=== PATIENT | female | born 1945 | race Caucasian/White ===

== ENCOUNTER → 2017-02-20 | Outpatient (CLI) | payer MEDICARE, OTHER ==
[~2017-02-20] MED LIST: ALBU8.5H3 INH; ATOR20TA PO; CARB1TAB2 PO; CARB1TAB5 PO; FLUT10.6; LEVO100T PO
== END | disposition home or self-care (01) ==
LOC: CFH 14:38
PROVIDERS: ATTEND Family Medicine
DX: Z12.31 Encounter for screening mammogram for malignant neoplasm of breast (principal)
CPT/HCPCS: 77063; G0202

== ENCOUNTER → 2018-02-22 | Outpatient (CLI) | payer MEDICARE ==
[~2018-02-22] MED LIST changes: -ALBU8.5H3 INH; +ALBU8.5H8 INH
== END | disposition home or self-care (01) ==
LOC: CFH 09:17
PROVIDERS: ATTEND Family Medicine
DX: Z12.31 Encounter for screening mammogram for malignant neoplasm of breast (principal); Z13.820 Encounter for screening for osteoporosis; M81.0 Age-related osteoporosis without current pathological fracture; Z78.0 Asymptomatic menopausal state
CPT/HCPCS: 77063; 77080; 77067

== ENCOUNTER 2020-01-13 12:35 | Outpatient (CLI) | payer MEDICARE ==
[2020-01-13] MEDS ORDERED: LIDOCAINE-MPF 1%, 5ML ONE (12:48)
[2020-01-13] MEDS ORDERED: ROPivacaine/PF 0.2%, 10 ML ONE (12:48)
[2020-01-13] MEDS ORDERED: OMNIPAQUE 300 MG/ML, 10ML VIAL ONE (13:45)
== END 2020-01-13 23:59 | disposition home or self-care (01) ==
LOC: RAD 12:35
PROVIDERS: ATTEND Orthopaedic Surgery
DX: S43.084A Other dislocation of right shoulder joint, initial encounter (principal); S46.011A Strain of muscle(s) and tendon(s) of the rotator cuff of right shoulder, initial encounter; M25.711 Osteophyte, right shoulder; M19.011 Primary osteoarthritis, right shoulder; M62.511 Muscle wasting and atrophy, not elsewhere classified, right shoulder; G20 Parkinson's disease; W18.39XA Other fall on same level, initial encounter; Y93.89 Activity, other specified; Y92.89 Other specified places as the place of occurrence of the external cause; Y99.8 Other external cause status
CPT/HCPCS: 23350; 73040; 73200; 73201; J2795; Q9967

== ENCOUNTER 2021-02-23 13:44 | Observation (INO) | payer MEDICARE ==
[~2021-02-23] VITALS: Ht 167.6 cm; Wt 57.6 kg
[~2021-02-23 13:44] MED LIST changes: +ALEN70TA3 PO; +CARB-218 PO; -CARB1TAB2 PO; +CLON-364 PO; +CLON0.1T22 PO; +OXYC5TAB98 PO; +VENL75TA PO; +VENL75TA2 PO; +flovent INH
[2021-02-23] MEDS ORDERED: FENTANYL PF 100 MCG/2ML ONE ×4 (14:51→19:54)
[2021-02-23] MEDS ORDERED: MIDAZOLAM 1 MG/ML, 2ML ONE (14:51)
[2021-02-23] MEDS ORDERED: CHLORHEXIDINE 15 ML UDC ONE (14:52)
[2021-02-23] MEDS ORDERED: LACTATED RINGERS 1,000 ML IV SCH (15:00)
[2021-02-23] MEDS ORDERED: CHLORHEXIDINE 15 ML UDC PO ONE (15:00)
[2021-02-23 15:03] VITALS: BP 138/64
[2021-02-23] MEDS ORDERED: BUPIVACAINE/PF 0.5% ONE (15:15)
[2021-02-23] MEDS ORDERED: EPINEPHRINE 1 MG/ML, 1ML ONE (15:15)
[2021-02-23] MEDS ORDERED: ONDANSETRON 2MG/ML, 2ML ONE (15:42)
[2021-02-23] MEDS ORDERED: DEXAMETHASONE 4 MG/ML, 1ML ONE (15:42)
[2021-02-23] MEDS ORDERED: SUCCINYLCHOLINE 20 MG/ML, 10ML ONE (15:42)
[2021-02-23] MEDS ORDERED: PROPOFOL 10 MG/ML, 20ML ONE (15:42)
[2021-02-23] MEDS ORDERED: hydrALAzine 20 MG/ML, 1ML ONE (15:42)
[2021-02-23] MEDS ORDERED: CEFAZOLIN 1,000 MG ONE (15:42)
[2021-02-23] MEDS ORDERED: ROCURONIUM 10 MG/ML,10ML ONE (15:42)
[2021-02-23] MEDS ORDERED: FENTANYL PF 100 MCG/2ML IV PRN (16:30)
[2021-02-23] MEDS ORDERED: KETOROLAC 30 MG/1 ML IVPush PRN ×2 (16:30→19:30)
[2021-02-23] MEDS ORDERED: ONDANSETRON 2MG/ML, 2ML IVPush PRN ×3 (16:30→22:00)
[2021-02-23] MEDS ORDERED: HYDROmorphone 1 MG/ML, 1ML INJ IVPush PRN ×2 (16:30→19:30)
[2021-02-23] MEDS ORDERED: ACETAMINOPHEN 325 MG TABLET PO PRN ×2 (16:30→19:30)
[2021-02-23] MEDS ORDERED: HYDROcodone/APAP 7.5-325MG/15ML UDC PO PRN (16:30)
[2021-02-23] MEDS ORDERED: OXYcodone 5 MG/5 ML ORAL.SOL UDC PO PRN (16:30)
[2021-02-23] MEDS ORDERED: PROMETHAZINE 25 MG/ML, 1ML IVPush PRN ×2 (16:30→19:30)
[2021-02-23] MEDS ORDERED: MEPERIDINE/PF 25MG/0.5ML IVPush PRN (16:30)
[2021-02-23] MEDS: FENTANYL PF 100 MCG/2ML IV PRN ×8 (19:00→20:00)
[2021-02-23] MEDS ORDERED: ACETAMINOPHEN 650 MG/20.3 ML UDC ONE (19:02)
[2021-02-23] MEDS ORDERED: OXYcodone 5 MG/5 ML ORAL.SOL UDC ONE ×2 (19:03→19:34)
[2021-02-23] MEDS: OXYcodone 5 MG/5 ML ORAL.SOL UDC PO PRN ×2 (19:05→19:34)
[2021-02-23] MEDS ORDERED: KETOROLAC 30 MG/1 ML ONE (19:34)
[2021-02-23] MEDS ORDERED: OXYC5TAB98 PO (20:37)
[2021-02-23] MEDS ORDERED: HYDROmorphone 1 MG/ML, 1ML INJ IM PRN (22:00)
[2021-02-23] MEDS ORDERED: OXYcodone/APAP 5/325MG TABLET PO PRN (22:00)
[2021-02-23 23:46] VITALS: BP 123/69
[2021-02-24 02:32] VITALS: BP 123/72
[2021-02-24] MEDS: CARBIDOPA/LEVODOPA 25 MG/100 MG TABLET PO SCH ×3 (05:26→14:17)
[2021-02-24] MEDS ORDERED: LEVOTHYROXINE 100 MCG TABLET PO SCH (06:00)
[2021-02-24 07:35] VITALS: BP 125/66
[2021-02-24] MEDS ORDERED: VENLAFAXINE 75 MG CAP ER PO SCH (09:00)
[2021-02-24] MEDS: ACETAMINOPHEN 325 MG TABLET PO PRN ×2 (09:01→13:18)
[2021-02-24 12:39] VITALS: BP 110/63
[2021-02-28] MEDS ORDERED: ALENDRONATE 70 MG TABLET PO SCH (06:30)
== END 2021-02-24 17:41 | disposition home or self-care (01) ==
LOC: OR 13:44 → 3N 22:47
PROVIDERS: ADMIT Orthopaedic Surgery; ATTEND Orthopaedic Surgery
DX: S42.491A Other displaced fracture of lower end of right humerus, initial encounter for closed fracture (principal); Z20.822 Contact with and (suspected) exposure to COVID-19; G20 Parkinson's disease; E03.9 Hypothyroidism, unspecified; R29.6 Repeated falls; W19.XXXA Unspecified fall, initial encounter; Y93.89 Activity, other specified; Y92.89 Other specified places as the place of occurrence of the external cause
CPT/HCPCS: 20680; 23491; 24365; 73060; 93005; C1713; C1776; G0378; J0330; J0360; J0690; J1100; J1885; J2250; J2405; J2704; J3010; J7120; U0003; U0005; 76000; J0171